=== PATIENT | female | born 1965 | race Caucasian/White ===

== ENCOUNTER 2016-09-01 08:30 | Outpatient (RCR) | payer BC | END 2016-09-05 | LOC: M PT 08:30 | PROVIDERS: ATTEND Internal Medicine | DX: Z51.89 Encounter for other specified aftercare (principal); M54.6 Pain in thoracic spine; M54.2 Cervicalgia ==

== ENCOUNTER 2016-09-29 09:45 | Outpatient (RCR) | payer BC | END 2016-10-03 | LOC: M PT 09:45 | PROVIDERS: ATTEND Internal Medicine | DX: Z51.89 Encounter for other specified aftercare (principal); M54.5 Low back pain; M54.6 Pain in thoracic spine; M54.2 Cervicalgia ==

== ENCOUNTER 2016-10-30 15:12 | Outpatient (RCR) | payer BC | END 2016-11-03 | LOC: M PT 15:12 | PROVIDERS: ATTEND Internal Medicine | DX: Z51.89 Encounter for other specified aftercare (principal); M54.5 Low back pain; M54.2 Cervicalgia; M54.6 Pain in thoracic spine ==

== ENCOUNTER 2016-12-01 09:45 | Outpatient (RCR) | payer BC | END 2016-12-03 | LOC: M PT 09:45 | PROVIDERS: ATTEND Internal Medicine | DX: Z51.89 Encounter for other specified aftercare (principal); M54.5 Low back pain; M54.2 Cervicalgia; M54.6 Pain in thoracic spine ==

== ENCOUNTER 2016-12-29 09:45 | Outpatient (RCR) | payer BC | END 2017-01-03 | LOC: M PT 09:45 | PROVIDERS: ATTEND Internal Medicine | DX: Z51.89 Encounter for other specified aftercare (principal); M54.5 Low back pain ==

== ENCOUNTER 2017-01-04 11:11 | Outpatient (RCR) | payer BC | END 2017-02-02 | LOC: M PT 11:11 | PROVIDERS: ATTEND Internal Medicine | DX: Z51.89 Encounter for other specified aftercare (principal); M54.5 Low back pain ==

== ENCOUNTER 2017-08-17 09:08 | Outpatient (RCR) | payer BC | END 2017-09-05 | LOC: M PT 09:08 | DX: Z51.89 Encounter for other specified aftercare (principal); M54.2 Cervicalgia; M79.672 Pain in left foot | CPT/HCPCS: 97010 ==

== ENCOUNTER 2017-09-10 12:53 | Outpatient (RCR) | payer BC | END 2017-10-03 | LOC: M PT 12:53 | DX: Z51.89 Encounter for other specified aftercare (principal); M54.2 Cervicalgia; M79.672 Pain in left foot | CPT/HCPCS: 97010 ==

== ENCOUNTER 2017-10-05 08:30 | Outpatient (RCR) | payer BC | END 2017-11-03 | disposition home or self-care (01) | LOC: M PT 08:30 | DX: Z51.89 Encounter for other specified aftercare (principal); M54.2 Cervicalgia; M79.672 Pain in left foot ==

== ENCOUNTER → 2017-12-04 | Outpatient (CLI) | payer BC ==
[~2017-12-04] MED LIST: E-Z-GAS II EFFERVESCENT PACKET (SODIUM BICARB./CITRIC ACID/SIMETHICONE) As Ordered; E-Z-HD 98% w/w 340GM SUSP BTL As Ordered; E-Z-PAQUE 96% w/w SUSP 176GM BTL As Ordered
== END ==
LOC: M RAD 09:43
DX: K21.9 Gastro-esophageal reflux disease without esophagitis (principal)
CPT/HCPCS: 74241

== ENCOUNTER 2018-05-29 10:03 | Outpatient (RCR) | payer BC | END 2018-06-05 | LOC: M PT 10:03 | DX: M54.5 Low back pain (principal) | CPT/HCPCS: 97110 ==

== ENCOUNTER 2018-06-06 09:20 | Outpatient (RCR) | payer BC | END 2018-07-05 | LOC: M PT 06-10 09:15 | DX: M54.5 Low back pain (principal) ==

== ENCOUNTER 2018-11-24 01:04 | Emergency (ER) | payer BC, SELFPAY ==
[~2018-11-24] VITALS: Ht 172.7 cm; Wt 68.2 kg
[2018-11-24] MEDS ORDERED: IBUP-1114 PO (01:11)
[2018-11-24] MEDS ORDERED: HYDR-3713 PO (01:11)
[2018-11-24] MEDS ORDERED: AMOX500C PO (05:13)
[2018-11-24] MEDS ORDERED: AMOXICILLIN 500 MG CAP PO ONE (05:15)
[2018-11-24 05:37] VITALS: BP 121/65
== END 2018-11-24 05:38 | disposition home or self-care (01) ==
LOC: M ED 01:04
DX: H72.2X1 Other marginal perforations of tympanic membrane, right ear (principal); K44.9 Diaphragmatic hernia without obstruction or gangrene; J30.2 Other seasonal allergic rhinitis; Z91.040 Latex allergy status; Z88.8 Allergy status to other drugs, medicaments and biological substances

== ENCOUNTER → 2020-10-31 | Outpatient (CLI) | payer SELFPAY ==
[~2020-10-31] MED LIST changes: +AMOX500C PO; -E-Z-GAS II EFFERVESCENT PACKET (SODIUM BICARB./CITRIC ACID/SIMETHICONE) As Ordered; -E-Z-HD 98% w/w 340GM SUSP BTL As Ordered; -E-Z-PAQUE 96% w/w SUSP 176GM BTL As Ordered; +HYDR-3713 PO; +IBUP-1114 PO
== END ==
LOC: M LABSMTC 10:35
PROVIDERS: ATTEND Pediatrics
DX: Z11.52 Encounter for screening for COVID-19 (principal)

== ENCOUNTER 2021-03-16 11:37 | Emergency (ER) | payer SELFPAY ==
[~2021-03-16] VITALS: Ht 172.7 cm; Wt 68.2 kg
[2021-03-16 11:38] VITALS: BP 121/70
[2021-03-16] MEDS ORDERED: MULT-100 PO (12:05)
[2021-03-16] MEDS ORDERED: ASCO1TAB3 PO (12:05)
[2021-03-16 12:08] VITALS: O2SAT 100
--- NOTE | 2021-03-16 12:49 | REP ---
INDICATION: cough. COMPARISON: None. TECHNIQUE: AP view FINDINGS: Who presents mm noncalcified left upper lobe nodule. Apical pleural thickening and fibrotic change in the apices. Lungs otherwise clear. No evidence of pneumonia. Heart not enlarged. No failure or pleural effusion. IMPRESSION: 6 mm left upper lobe nodule. Chest CT would be helpful for further evaluation. No evidence of failure or pneumonia. <Electronically signed by Surinder Toledo > 03/16/21 [id number]
--- NOTE | 2021-03-18 13:41 | ED PDOC ---
Post-Departure Follow-Up radiology report faxed to Leanna Kim MD Mar 18, 2021 13:41
== END 2021-03-16 13:44 | disposition home or self-care (01) ==
LOC: M ED 11:37
DX: R91.1 Solitary pulmonary nodule (principal); U07.1 COVID-19; K21.9 Gastro-esophageal reflux disease without esophagitis; Z88.8 Allergy status to other drugs, medicaments and biological substances; Z91.040 Latex allergy status; J30.89 Other allergic rhinitis

== ENCOUNTER → 2021-03-22 | Outpatient (CLI) | payer SELFPAY ==
[~2021-03-22] MED LIST changes: +ASCO1TAB3 PO; +MULT-100 PO
--- NOTE | 2021-03-22 23:27 | REP ---
INDICATION: solitary pulmonary nodule COMPARISON: 01/22/2008 TECHNIQUE: Axial noncontrast images from the thoracic inlet to the upper abdomen with coronal and sagittal reformations. This CT examination was performed using the following dose reduction techniques: Automated exposure control, adjustment of mA and/or kv according to the patient's size, and use of iterative reconstruction technique. FINDINGS: Significant scattered multiple somewhat ill-defined nodular consolidations with surrounding ground-glass opacity noted in the bilateral mid to lower lung zones (left greater than right). Mild reactive mediastinal lymph nodes are also suggested. No effusion. No pneumothorax. Tracheobronchial tree is patent. Thoracic aorta, pulmonary vasculature and heart/pericardium are grossly normal. Musculoskeletal structures are intact. IMPRESSION: Significant scattered multiple ill-defined nodular consolidations primarily noted in the bilateral lower lobes (left greater than right). Differential diagnosis includes multifocal pneumonia, septic emboli, as well as the possibility of neoplastic/metastatic change. Clinical correlation and short-term follow-up should be considered. <Electronically signed by Norman Terrazas > 03/22/21 [id number]
== END ==
LOC: M RAD 11:02
PROVIDERS: ATTEND Internal Medicine
DX: R91.1 Solitary pulmonary nodule (principal); R91.8 Other nonspecific abnormal finding of lung field

== ENCOUNTER → 2021-05-11 | Outpatient (CLI) | payer SELFPAY ==
--- NOTE | 2021-05-11 13:49 | REP ---
INDICATION: F/U PULMONARY NODULES COMPARISON: 03/22/2021 latest prior TECHNIQUE: Standard helical technique without intravenous contrast administration. FINDINGS: The mediastinum and pulmonary howard are unchanged. There are no pleural or pericardial effusions. There is no change in the imaged upper abdomen or imaged osseous structures. Evaluation of the lung rivas shows near complete resolution of the previously present ground-glass opacities with only a subtle residual particularly in the left lower lobe. There is biapical pleuroparenchymal scarring status quo. IMPRESSION: Significant lung field improvement as described above. I will recommend an additional three-month follow-up to ensure total resolution. <Electronically signed by Ernesto Pearce > 05/11/21 [id number]
== END ==
LOC: M PLAIMG 12:52
PROVIDERS: ATTEND Internal Medicine
DX: R91.1 Solitary pulmonary nodule (principal)